=== PATIENT | male | born 1990 | race Caucasian/White ===

== ENCOUNTER 2017-04-24 19:38 | Emergency (ER) | payer SELFPAY ==
[~2017-04-24] VITALS: Ht 182.9 cm; Wt 86.0 kg
[~2017-04-24 19:38] MED LIST: DOXY100T PO; Z.0.NO CURRENT MEDS
[2017-04-24 19:39] VITALS: BP 127/64; PULSE 102; RESP 16; TEMP 98.1; O2SAT 98
[2017-04-24] MEDS ORDERED: ALBU1AER5 INH (20:00)
[2017-04-24] MEDS ORDERED: metroNIDAZOLE 500 MG TAB PO ONE (20:45)
[2017-04-24] MEDS ORDERED: AZITHROMYCIN 250 MG TAB PO ONE (20:45)
[2017-04-24] MEDS ORDERED: LIDOCAINE HCL 1% 50 ML VIAL XX ONE (20:45)
[2017-04-24] MEDS ORDERED: ONDANSETRON ODT 4 MG TAB PO/SL ONE (20:45)
[2017-04-24] MEDS ORDERED: cefTRIAXone 250 MG VIAL IM ONE (20:45)
--- NOTE | 2017-04-24 20:47 | PD ---
HPI Chief Complaint: Complaint Time Seen by Provider: 20:43 Travel History International Travel<30 days: No Contact w/Intl Traveler<30days: No Traveled to known affect area: No History of Present Illness HPI Patient is a 26-year-old male presenting to emergency department for evaluation of dysuria, penile discharge and irritation. Patient states he had unprotected sex approximately one and a half weeks ago. His symptoms have been ongoing for 3 days. He denies any scrotal pain, abdominal pain, fever, chills, nausea, vomiting. He states he's had these symptoms several years ago and believes he had chlamydia at that time. PFSH Past Medical History Asthma: Yes (Asthma since 6 years old --hospitalizations 3-4 [id number] visits) Anxiety: No Depression: No Cardiovascular Problems: No Diminished Hearing: No Neurologic: No Psychiatric: No Respiratory: Yes Sickle Cell Disease: No Tetanus Vaccination: Unknown Influenza Vaccination: No Past Surgical History Surgical History: No Previous Surgery Social History Alcohol Use: Yes Tobacco Use: No Substance Use: No Allergies-Medications (Allergen,Severity, Reaction): Coded Allergies: No Known Allergies (Verified , 04/24/17) Reported Meds & Prescriptions Reported Meds & Active Scripts Active Reported Proair Respiclick Inh (Albuterol Sulfate) 90 Mcg/Act Aerp 1 Puff INH Q4H PRN Review of Systems Except as stated in HPI: all other systems reviewed are Neg Genitourinary: Positive: Dysuria, Discharge Physical Exam Narrative GENERAL: Well-nourished, well-developed patient. SKIN: Focused skin assessment warm/dry. HEAD: Normocephalic. EYES: No scleral icterus. No injection or drainage. NECK: Supple, trachea midline. No JVD or lymphadenopathy. CARDIOVASCULAR: Regular rate and rhythm without murmurs, gallops, or rubs. RESPIRATORY: Breath sounds equal bilaterally. No accessory muscle use. GASTROINTESTINAL: Abdomen soft, non-tender, nondistended. MUSCULOSKELETAL: No cyanosis, or edema. BACK: Nontender without obvious deformity. No CVA tenderness. Data Data Last Documented VS Vital Signs Date Time Temp Pulse Resp B/P Pulse Ox O2 Delivery O2 Flow Rate FiO2 04/24/17 19:39 98.1 102 16 127/64 98 Orders Urinalysis - C+S If Indicated (04/24/17 20:03) Gc And Chlamydia Pcr (04/24/17 20:06) Azithromycin (Zithromax) (04/24/17 20:45) Ceftriaxone Inj (Rocephin Inj) (04/24/17 20:45) Metronidazole (Flagyl) (04/24/17 20:45) Ondansetron Odt (Zofran Odt) (04/24/17 20:45) Lidocaine 1% Inj (50 Ml) (Xylocaine 1% I (04/24/17 20:45) Labs Laboratory Tests Test 04/24/17 20:45 Urine Color YELLOW Urine Turbidity CLEAR Urine pH 7.5 Urine Specific [place] 1.013 Urine Protein NEG mg/dL Urine Glucose (UA) NEG mg/dL Urine Ketones NEG mg/dL Urine Occult Blood NEG Urine Nitrite NEG Urine Bilirubin NEG Urine Urobilinogen LESS THAN 2.0 MG/DL Urine Leukocyte Esterase SMALL Urine WBC 6 /hpf Microscopic Urinalysis Comment CULT NOT INDICATED MDM Medical Decision Making Medical Screen Exam Complete: Yes Emergency Medical Condition: Yes Interpretation(s) Laboratory Tests Test 04/24/17 20:45 Urine Color YELLOW Urine Turbidity CLEAR Urine pH 7.5 Urine Specific [place] 1.013 Urine Protein NEG mg/dL Urine Glucose (UA) NEG mg/dL Urine Ketones NEG mg/dL Urine Occult Blood NEG Urine Nitrite NEG Urine Bilirubin NEG Urine Urobilinogen LESS THAN 2.0 MG/DL Urine Leukocyte Esterase SMALL Urine WBC 6 /hpf Microscopic Urinalysis Comment CULT NOT INDICATED Vital Signs Date Time Temp Pulse Resp B/P Pulse Ox O2 Delivery O2 Flow Rate FiO2 04/24/17 19:39 98.1 102 16 127/64 98 Differential Diagnosis STD versus UTI versus contact dermatitis versus epididymitis versus other Narrative Course Patient is a [age]year-old male presenting with penile discharge, dysuria for the last 3 days. UA, GC chlamydia ordered and pending. Patient will be treated empirically at this time. He was encouraged to maintain safe sexual practices to avoid transmission of sexually transmitted diseases. He was advised to follow-up at the health Department or with his primary care provider for further STD testing. He was advised to avoid alcohol for at least 24-48 hours due to administration of metronidazole. He was advised that he'll be notified of test results once they are available and if he is in fact positive he will need to notify his partner. Patient verbalized understanding of these instructions. Patient is stable for discharge. Diagnosis Primary Impression: Dysuria Additional Impression: Discharge from penis [facility] Patient Instructions: General Instructions, Sexually Transmitted Diseases (ED) Additional Instructions: Avoid alcohol for at least 24-48 hours due to interaction with metronidazole that was administered in the emergency department. This can cause nausea and vomiting. You will be notified of test results, if positive you will need to notify your sexual partner so they can be treated as well. Maintain safe sexual practices with barrier protection to avoid transmission of sexually transmitted diseases Return to emergency department for any new or worsening symptoms Med/Other Pt SpecificInfo: No Change to Meds Disposition: 01 DISCHARGE HOME Condition: Stable Ellen Quevedo Apr 24, 2017 20:47
[2017-04-24 21:07] LABS: BLOOD, URINE NEG (NEG); COMMENT (UR) CULT NOT INDICATED; CULTURE IF INDICATED CULT NOT INDICATED; GLUCOSE,URINE NEG (NEG); KETONE, URINE NEG (NEG); NITRITE,URINE NEG (NEG); PH, URINE 7.5 (5.0-8.5); URINE COLOR YELLOW (YELLW/STRAW)
[2017-04-25 00:03] LABS: CHLAMYDIA PCR NOT DETECTED (NOT DETECT); NEISSERIA PCR NOT DETECTED (NOT DETECT)
== END 2017-04-24 21:35 | disposition home or self-care (01) ==
LOC: NEPK 19:38
DX: R30.0 Dysuria (principal)
CPT/HCPCS: 81001; 87491; 87591; 96372; 99284; J0696